=== PATIENT | female | born 1975 ===

== ENCOUNTER 2017-09-26 09:37 | Outpatient (CLI) | payer OTHER | END 2017-09-26 11:15 | disposition home or self-care (01) | LOC: SONOGRAMA 09:37 | DX: N64.89 Other specified disorders of breast (principal) ==

== ENCOUNTER 2022-02-22 08:01 | Outpatient (CLI) | payer OTHER | END 2022-02-22 08:10 | disposition home or self-care (01) | LOC: RAD 08:01 | DX: M12.572 Traumatic arthropathy, left ankle and foot (principal); M25.362 Other instability, left knee ==